=== PATIENT | male | born 1960 | race Caucasian/White ===

== ENCOUNTER 2019-07-12 08:52 | Inpatient (IN) | payer MEDICAID ==
[~2019-07-12] VITALS: Ht 170.2 cm; Wt 60.6 kg
[2019-07-12 09:45] LABS: BASOPHILS % 0.7 % (0.0-2.0); EOSINOPHILS % 1.3 % (0.0-5.0); HEMATOCRIT. 38.4 % (42.0-52.0); HEMOGLOBIN. 13.2 g/dL (14.0-18.0); LYMPHOCYTES % 29.9 % (20.0-50.0); MEAN CORPUSCULAR VOLUME 84.1 fL (80.0-94.0); MEAN PLATELET VOLUME 8.5 fl (7.4-10.4); MONOCYTES % 7.2 % (2.0-8.0); NEUTROPHILS % 60.9 % (40.0-76.0); PLATELET 243 x1000/uL (130-400); RED BLOOD CELL COUNT 4.56 mill/uL (4.7-6.1)
[2019-07-12 09:53] LABS: CHLORIDE 105 mEq/L (98-107)
[2019-07-12 10:08] LABS: CLARITY URINE CLOUDY (CLEAR); COLOR URINE YELLOW (YELLOW); KETONES URINE NEGATIVE (NEGATIVE); LEUKOCYTE ESTERASE URINE NEGATIVE (NEGATIVE); NITRITE URINE NEGATIVE (NEGATIVE); OCCULT BLOOD URINE NEGATIVE (NEGATIVE); PROTEIN URINE 3+ (NEGATIVE); SPECIFIC GRAVITY URINE 1.019 (1.005-1.030); UROBILINOGEN URINE 0.2 E.U./dL (0.2-1.0)
[2019-07-12] MEDS ORDERED: ASPIRIN 325MG EC TABLET PO ONE (10:30)
[2019-07-12] MEDS ORDERED: CLONIDINE 0.1MG TABLET PO PRN (16:30)
[2019-07-12] MEDS ORDERED: ONDANSETRON HCL 4MG/2ML INJ IV PRN (16:30)
[2019-07-12] MEDS ORDERED: DOCUSATE SODIUM 100MG CAPSULE PO PRN (16:30)
[2019-07-12] MEDS ORDERED: LORAZEPAM 0.5MG TABLET PO PRN (16:30)
[2019-07-12] MEDS ORDERED: IPRATROPIUM/ALBUTEROL 0.5-3(2.5)MG/3ML NEB HHN PRN (16:30)
[2019-07-12] MEDS ORDERED: ACETAMINOPHEN 325MG TABLET PO PRN (16:30)
[2019-07-12 17:10] VITALS: BP 159/104
[2019-07-12 17:35] LABS: FOLIC ACID (FOLATE) SERUM 10.7 ng/mL (>5.38)
[2019-07-12 18:00] VITALS: BP 148/96
[2019-07-12] MEDS: AMLODIPINE 5MG TABLET PO SCH (18:52)
[2019-07-12] MEDS ORDERED: PNEUMOCOCCAL 23-VAL P-SAC VAC 0.5 ML IM ONE (19:30)
[2019-07-12 20:00] VITALS: BP 155/93
[2019-07-12] MEDS ORDERED: DEXTROSE 50% WATER 50ML SYRINGE IV PRN ×2 (20:15)
[2019-07-12] MEDS: BLOOD SUGAR DIAGNOSTIC STRIP TEST SCH (20:52)
[2019-07-12] MEDS ORDERED: LISI10TA5 PO (21:22)
[2019-07-12] MEDS ORDERED: METO100T16 PO (21:22)
[2019-07-12] MEDS ORDERED: METF-415 PO (21:22)
[2019-07-12] MEDS ORDERED: CHLO50TA PO (21:22)
[2019-07-12] MEDS ORDERED: SPIR25TA6 PO (21:22)
[2019-07-12] MEDS: INSULIN LISPRO 100 UNITS/ML SUBCUT SCH (21:28)
[2019-07-12 22:00] VITALS: BP 148/48
[2019-07-12] MEDS ORDERED: ALOG1TAB8 PO (22:02)
[2019-07-12] MEDS ORDERED: FENO200C PO (22:02)
[2019-07-12] MEDS ORDERED: ATOR-2 PO (22:02)
[2019-07-12 22:15] LABS: *BARBITURATES SCREEN URINE NEGATIVE (NEGATIVE); *BENZODIAZEPINES SCREEN URINE NEGATIVE (NEGATIVE); *COCAINE SCREEN URINE NEGATIVE (NEGATIVE); METHADONE URINE SCREEN NEGATIVE (NEGATIVE); OPIATES URINE SCREEN NEGATIVE (NEGATIVE); PHENCYCLIDINE URINE SCREEN NEGATIVE (NEGATIVE)
[2019-07-12 22:16] LABS: *AMPHETAMINES SCREEN URINE NEGATIVE (NEGATIVE); CANNABINOID URINE SCREEN NEGATIVE (NEGATIVE)
[2019-07-12] MEDS: ATORVASTATIN CALCIUM 40MG TABLET PO SCH (23:32)
[2019-07-12 23:51] VITALS: BP 120/78
[2019-07-13] VITALS (10 sets, daily range): BP systolic 119–156; BP diastolic 73–99
[2019-07-13] MEDS: ENOXAPARIN 40MG/0.4ML SYR SUBCUT SCH ×2 (01:57→21:02)
[2019-07-13 06:00] LABS: BASOPHILS % 0.5 % (0.0-2.0); EOSINOPHILS % 1.9 % (0.0-5.0); HEMATOCRIT. 32.8 % (42.0-52.0); HEMOGLOBIN. 11.5 g/dL (14.0-18.0); LYMPHOCYTES % 39.5 % (20.0-50.0); MEAN CORPUSCULAR HEMOGLOBIN 29.4 pg (28.0-32.0); MEAN CORPUSCULAR VOLUME 83.7 fL (80.0-94.0); MEAN PLATELET VOLUME 9.4 fl (7.4-10.4); MONOCYTES % 7.7 % (2.0-8.0); NEUTROPHILS % 50.4 % (40.0-76.0); PLATELET 221 x1000/uL (130-400); RED BLOOD CELL COUNT 3.92 mill/uL (4.7-6.1); RED CELL DISTRIBUTION WIDTH 15.1 % (11.6-14.6)
[2019-07-13] MEDS: BLOOD SUGAR DIAGNOSTIC STRIP TEST SCH ×4 (06:15→21:00)
[2019-07-13] MEDS: INSULIN LISPRO 100 UNITS/ML SUBCUT SCH ×4 (06:15→21:01)
[2019-07-13 06:19] LABS: CHLORIDE 105 mEq/L (98-107)
[2019-07-13 06:24] LABS: TOTAL IRON BINDING CAPACITY 179 ug/dL (250-450)
[2019-07-13 06:25] LABS: LDL CHOLESTEROL 135 mg/dL (5-100)
[2019-07-13 06:26] LABS: HDL CHOLESTEROL 36 mg/dL (40-59)
[2019-07-13] MEDS: AMLODIPINE 5MG TABLET PO SCH (09:46)
[2019-07-13] MEDS ORDERED: POTASSIUM CHLORIDE 20MEQ TABLET SR PO SCH (10:00)
[2019-07-13] MEDS: ATORVASTATIN CALCIUM 40MG TABLET PO SCH (21:02)
[2019-07-14] VITALS (15 sets, daily range): BP systolic 110–157; BP diastolic 67–97
[2019-07-14 05:50] LABS: BASOPHILS % 0.4 % (0.0-2.0); EOSINOPHILS % 1.7 % (0.0-5.0); HEMATOCRIT. 35.6 % (42.0-52.0); HEMOGLOBIN. 12.3 g/dL (14.0-18.0); LYMPHOCYTES % 33.1 % (20.0-50.0); MEAN CORPUSCULAR HEMOGLOBIN 29.1 pg (28.0-32.0); MEAN CORPUSCULAR VOLUME 84.5 fL (80.0-94.0); MEAN PLATELET VOLUME 9.1 fl (7.4-10.4); MONOCYTES % 8.6 % (2.0-8.0); NEUTROPHILS % 56.2 % (40.0-76.0); PLATELET 223 x1000/uL (130-400); RED BLOOD CELL COUNT 4.21 mill/uL (4.7-6.1); RED CELL DISTRIBUTION WIDTH 15.1 % (11.6-14.6)
[2019-07-14] MEDS: BLOOD SUGAR DIAGNOSTIC STRIP TEST SCH ×4 (06:02→20:43)
[2019-07-14 07:52] LABS: CHLORIDE 105 mEq/L (98-107)
[2019-07-14] MEDS: AMLODIPINE 5MG TABLET PO SCH (08:22)
[2019-07-14] MEDS: INSULIN LISPRO 100 UNITS/ML SUBCUT SCH ×4 (08:29→20:44)
[2019-07-14] MEDS: ATORVASTATIN CALCIUM 40MG TABLET PO SCH (20:42)
[2019-07-14] MEDS: ENOXAPARIN 40MG/0.4ML SYR SUBCUT SCH (20:42)
[2019-07-14] MEDS: HYDROCODONE/ACETAMINOPHEN 5/325MG TABLET PO PRN (20:43)
[2019-07-15] VITALS (14 sets, daily range): BP systolic 108–166; BP diastolic 54–99
[2019-07-15] MEDS: BLOOD SUGAR DIAGNOSTIC STRIP TEST SCH ×4 (06:32→20:50)
[2019-07-15] MEDS: AMLODIPINE 5MG TABLET PO SCH (09:40)
[2019-07-15] MEDS: INSULIN LISPRO 100 UNITS/ML SUBCUT SCH ×4 (09:41→20:51)
[2019-07-15] MEDS: HYDROCODONE/ACETAMINOPHEN 5/325MG TABLET PO PRN (19:04)
[2019-07-15] MEDS: ATORVASTATIN CALCIUM 40MG TABLET PO SCH (20:50)
[2019-07-16] VITALS (11 sets, daily range): BP systolic 125–150; BP diastolic 82–93
[2019-07-16] MEDS: BLOOD SUGAR DIAGNOSTIC STRIP TEST SCH ×3 (06:27→16:42)
[2019-07-16 07:03] LABS: BASOPHILS % 0.6 % (0.0-2.0); EOSINOPHILS % 2.3 % (0.0-5.0); HEMATOCRIT. 37.1 % (42.0-52.0); HEMOGLOBIN. 12.7 g/dL (14.0-18.0); LYMPHOCYTES % 31.6 % (20.0-50.0); MEAN CORPUSCULAR HEMOGLOBIN 29.1 pg (28.0-32.0); MEAN CORPUSCULAR VOLUME 85.1 fL (80.0-94.0); MONOCYTES % 8.2 % (2.0-8.0); NEUTROPHILS % 57.3 % (40.0-76.0); PLATELET 219 x1000/uL (130-400); RED BLOOD CELL COUNT 4.36 mill/uL (4.7-6.1); RED CELL DISTRIBUTION WIDTH 14.9 % (11.6-14.6)
[2019-07-16 07:09] LABS: CHLORIDE 104 mEq/L (98-107)
[2019-07-16] MEDS: AMLODIPINE 5MG TABLET PO SCH (08:35)
[2019-07-16] MEDS: INSULIN LISPRO 100 UNITS/ML SUBCUT SCH ×3 (08:36→16:48)
[2019-07-17] MEDS ORDERED: CLOPIDOGREL 75MG TABLET PO SCH (09:00)
[2019-08-06] MEDS ORDERED: ALOG1TAB8 PO (10:46)
[2019-08-06] MEDS ORDERED: FERR325T23 PO (10:46)
[2019-08-06] MEDS ORDERED: AMLO5TAB88 PO (10:46)
[2019-08-06] MEDS ORDERED: CLOP75TA15 PO (10:46)
[2019-08-06] MEDS ORDERED: ATOR-2 PO (10:46)
[2019-08-06] MEDS ORDERED: TRU10 BOTHEYE (10:46)
[2019-08-06] MEDS ORDERED: FAMO20TA8 PO (10:46)
== END 2019-07-16 18:20 | DRG 347 ==
LOC: ER 09:17 → 3WST 12:25 → ENRESERV 15:56
PROVIDERS: ADMIT Internal Medicine; ATTEND Internal Medicine
DX: M48.02 Spinal stenosis, cervical region (principal); E11.65 Type 2 diabetes mellitus with hyperglycemia; I11.9 Hypertensive heart disease without heart failure; I16.0 Hypertensive urgency; G90.9 Disorder of the autonomic nervous system, unspecified; E44.1 Mild protein-calorie malnutrition; M47.812 Spondylosis without myelopathy or radiculopathy, cervical region; I69.354 Hemiplegia and hemiparesis following cerebral infarction affecting left non-dominant side; M50.322 Other cervical disc degeneration at C5-C6 level; M51.36 Other intervertebral disc degeneration, lumbar region; R80.9 Proteinuria, unspecified; M48.061 Spinal stenosis, lumbar region without neurogenic claudication; I25.10 Atherosclerotic heart disease of native coronary artery without angina pectoris; D64.9 Anemia, unspecified; R07.89 Other chest pain; E78.00 Pure hypercholesterolemia, unspecified; E78.5 Hyperlipidemia, unspecified; I25.2 Old myocardial infarction; Z79.84 Long term (current) use of oral hypoglycemic drugs; Z83.3 Family history of diabetes mellitus; Z71.3 Dietary counseling and surveillance; Z82.49 Family history of ischemic heart disease and other diseases of the circulatory system; Z68.20 Body mass index [BMI] 20.0-20.9, adult
CPT/HCPCS: 36415; 70551; 71045; 72141; 72146; 72148; 80048; 80053; 80061; 80305; 81003; 82607; 82728; 82746; 82962; 83036; 83540; 83550; 84484; 85025; 90732; 92610; 93005; 97116; 97162; 97166; 97530; J1650; J1815